=== PATIENT | female | born 1940 | race Caucasian/White ===

== ENCOUNTER 2016-08-28 09:08 | Outpatient (CLI) | payer MEDICARE, BC ==
[2016-08-28 09:47] LABS: ALT (SGPT) 19 U/L (0-55); AST (SGOT) 18 U/L (5-34); Alkaline Phosphatase 66 U/L (40-150); Anion Gap 14 mmol/L (10-20); BUN (Urea Nitrogen) 12 mg/dL (9.8-20.1); Bilirubin, Direct 0.7 mg/dL (0.1-0.3); Calc. Creatinine Clearance 0 mL/min (70-130); Calcium 9.1 mg/dL (7.8-10.44); Carbon Dioxide 25 mmol/L (23-31); Chloride 107 mmol/L (98-107); Estimated GFR-MDRD 56; LDL Cholesterol, Calculated 47 mg/dL; Protein, Total 6.2 g/dL (5.8-8.1)
== END 2016-08-28 09:09 | disposition home or self-care (01) ==
LOC: BURLAB 09:08
PROVIDERS: ATTEND Internal Medicine Cardiovascular Disease
DX: I25.10 Atherosclerotic heart disease of native coronary artery without angina pectoris (principal); Z79.899 Other long term (current) drug therapy
CPT/HCPCS: 36415; 80048; 80061; 80076

== ENCOUNTER 2017-03-26 18:30 | Outpatient (CLI) | payer MEDICARE, BC ==
[2017-03-26 19:07] LABS: Anion Gap 16 mmol/L (10-20); BUN (Urea Nitrogen) 26 mg/dL (9.8-20.1); Calc. Creatinine Clearance 0 mL/min (70-130); Calcium 9.4 mg/dL (7.8-10.44); Carbon Dioxide 25 mmol/L (23-31); Chloride 100 mmol/L (98-107); Estimated GFR-MDRD 44; Glucose 115 mg/dL (83-110); Sodium 137 mmol/L (136-145)
== END 2017-03-26 18:31 | disposition home or self-care (01) ==
LOC: BURLAB 18:30
PROVIDERS: ATTEND Internal Medicine Cardiovascular Disease
DX: E78.2 Mixed hyperlipidemia (principal); I10 Essential (primary) hypertension
CPT/HCPCS: 36415; 80048